=== PATIENT | female | born 1985 | race Caucasian/White ===

== ENCOUNTER → 2024-01-21 06:24 | Day surgery (SDC) | payer OTHER, SELFPAY ==
[2024-01-20 13:13] VITALS: BMI 27.7
[2024-01-20 13:42] LABS: % Basophils 0.5 % (0-2); % Eosinophils 1.9 % (0-6); % Immature Granulocytes 0.2 % (0-0.5); % Lymphocytes 27.1 % (20.5-51.1); % Monocytes 10.2 % (1.7-9.3); % Neutrophils 60.1 % (42.2-75.2); Absolute Eosinophils 0.1 10^3/uL (0-0.7); Absolute Lymphocytes 1.7 10^3/uL (1.2-3.4); Absolute Monocytes 0.7 10^3/uL (0.1-0.6); Absolute Neutrophils 3.8 10^3/uL (1.4-6.5); Hematocrit 39.3 % (37.0-47.0); Mean Corp Hgb Conc. 33.1 g/dL (33.0-37.0); Mean Corpuscular Hgb 30.6 pg (27.0-31.0); Mean Corpuscular Volume 92.5 fL (81.0-99.0); Mean Platelet Volume 9.9 fL (7.4-10.4); Nucleated Red Blood Cells % 0 %; Platelet Count 196 10^3/uL (130-400); Red Blood Cell Count 4.25 10^6/uL (4.20-5.40); Red Cell Dist. Width 12.8 % (11.5-14.5); White Blood Cell Count 6.4 10^3/uL (4.8-10.8)
[2024-01-20 14:12] LABS: PT 13.2 Sec (11.4-14.6)
[2024-01-20 14:13] LABS: APTT 31.1 Sec (23.4-35.0)
[2024-01-21 12:55] VITALS: BMI 27.7
[2024-01-21 12:56] VITALS: BP 115/56
[2024-01-21 15:51] VITALS: BP 103/55
[2024-01-21 16:00] VITALS: BP 116/73
[2024-01-21 16:15] VITALS: BP 138/79
[2024-01-21 16:30] VITALS: BP 131/70
== END ==
LOC: SDS 06:24
PROVIDERS: ATTENDING PHYSICIAN Obstetrics & Gynecology; FAMILY PHYSICIAN Nurse Practitioner Adult Health
DX: R87.613 High grade squamous intraepithelial lesion on cytologic smear of cervix (HGSIL) (principal)
CPT/HCPCS: 57522; 88305; 88307; 36415; 85025; 85610; 85730

== ENCOUNTER → 2024-11-20 09:17 | Outpatient (REF) | payer OTHER, SELFPAY | LOC: WDC 09:17 | PROVIDERS: ATTENDING PHYSICIAN Nurse Practitioner Adult Health | DX: N64.52 Nipple discharge (principal); Z80.3 Family history of malignant neoplasm of breast | CPT/HCPCS: 76642; 77062; 77066 ==

== ENCOUNTER → 2024-12-11 07:55 | Outpatient (REF) | payer OTHER, SELFPAY | LOC: WDC 07:55 | PROVIDERS: ATTENDING PHYSICIAN Internal Medicine | DX: R92.2 Inconclusive mammogram (principal) | CPT/HCPCS: 76641 ==

== ENCOUNTER → 2025-03-31 11:07 | Outpatient (REF) | payer OTHER, SELFPAY | LOC: RCS 11:07 | PROVIDERS: ATTENDING PHYSICIAN Nurse Practitioner Adult Health | DX: F90.9 Attention-deficit hyperactivity disorder, unspecified type (principal); Z79.899 Other long term (current) drug therapy | CPT/HCPCS: 93005 ==

== ENCOUNTER → 2025-05-07 20:15 | Outpatient (REF) | payer OTHER, SELFPAY | LOC: MRI 3T 20:15 | PROVIDERS: ATTENDING PHYSICIAN Surgery; FAMILY PHYSICIAN Nurse Practitioner Adult Health | DX: N64.52 Nipple discharge (principal) | CPT/HCPCS: 77049; A9585 ==

== ENCOUNTER 2025-06-22 06:37 | Day surgery (SDC) | payer OTHER, SELFPAY ==
[2025-06-11 09:16] LABS: Hematocrit 42.4 % (37.0-47.0); Hemoglobin 14.1 g/dL (12.0-16.0); Mean Corp Hgb Conc. 33.3 g/dL (33.0-37.0); Mean Corpuscular Volume 91.8 fL (81.0-99.0); Platelet Count 246 10^3/uL (130-400); Red Cell Dist. Width 13.0 % (11.5-14.5)
[2025-06-11 10:06] LABS: ALT (SGPT) 22 U/L (0-35); AST (SGOT) 22 U/L (14-36); Albumin 4.5 g/dl (3.5-5.0); Alkaline Phosphatase 56 U/L (38-126); Blood Urea Nitrogen 10 mg/dl (7-17); Calcium 9.2 mg/dl (8.4-10.2); Carbon Dioxide 29 mmol/L (22-30); Chloride 102 mmol/L (98-107); Glucose 85 mg/dl (70-99); Potassium 4.0 mmol/L (3.5-5.1); Sodium 136 mmol/L (135-145); Total Protein 6.9 g/dl (6.3-8.2); eGFR > 60.00
[2025-06-11 10:08] LABS: Prealbumin (Transthyretin) 26.2 mg/dl (17.6-36.0)
[2025-06-11 10:28] LABS: Vitamin D, 25-OH*** 24.9 ng/mL (30-80)
[2025-06-11 13:58] VITALS: BMI 21.8
[2025-06-22 13:47] VITALS: BMI 21.8
[2025-06-22 13:51] VITALS: BP 102/66
[2025-06-22] MEDS: TYLENOL 1000 MG PO (14:16)
--- NOTE | 2025-06-22 14:32 | PTCARENOTE ---
Report given to Cari DICKSON.
[2025-06-22 16:16] VITALS: BP 111/77
--- NOTE | 2025-06-22 16:26 | W.IMMPOSTOP ---
Surgical Immed Post Op Note
-
Primary Surgeon: Roxanna
Assisting Surgeon: None
Pre-op Diagnosis: Pathologic discharge left breast
Post-op Diagnosis: Same
Procedure Performed: Exploration left nipple areolar and excision central duct
Anesthesia Type: TIVA
Specimen / Cultures: Central duct comples
Estimated Blood Loss: 6cc
Complications: None
Operative Findings: Duct with bloody discharge identified
--- NOTE | 2025-06-22 16:29 | OR.RPT ---
Operative Report
Operative Report
Operative date: 06/22/2025
Surgeon: Roxanna
Preoperative diagnosis: Pathologic discharge left breast
: Pathologic discharge left breast
Procedure: Exploration left nipple areolar complex and excision central duct
The patient is a 39-year-old female who presented with pathologic discharge of the left breast. All imaging workup was negative and she presents for exploration and excision of the involved duct. The patient presented to the same-day surgical
services unit on the day of the procedure and she verified site and procedure. She was prepped and DVT and antibiotic prophylaxis were provided. She was transferred to the operating room. In the supine position intravenous sedation was delivered.
The left breast was prepped and draped in the usual sterile fashion and all team members performed an appropriate timeout procedure.
All tissues were anesthetized with 1% lidocaine plain and an inferior circumareolar incision was made sharply with the blade. The nipple flap was elevated using the cautery. A dilated duct was encountered from which sanguinous fluid was emanating.
This was widely excised following it down to the chest wall. Surrounding tissue was very fibrous and this was harvested as well. Time out of body was noted and the specimen was oriented for the pathologist and sent for permanent analysis.
Hemostasis was carefully maintained. Marcaine 0.5% plain was instilled into all tissues. A portion of Surgicel was placed in the wound cavity and the wound was closed using simple interrupted 2-0 Polysorb on deep and intermediate tissues. Skin
was closed using simple interrupted 3-0 Polysorb and subcutaneous tissue and the epidermis was closed with a running subcuticular 4 Monocryl. Surgical glue and sterile compressive dressing were applied. All sponge needle and instrument counts were
correct and the patient was transferred to same-day surgical services unit for recovery.
[id number]
[2025-06-22 16:30] VITALS: BP 127/78
[2025-06-22 16:45] VITALS: BP 103/61
== END 2025-06-22 17:04 | disposition home or self-care (01) ==
LOC: SDS 06:37
PROVIDERS: ATTENDING PHYSICIAN Surgery; FAMILY PHYSICIAN Nurse Practitioner Adult Health
DX: N64.52 Nipple discharge (principal); N62 Hypertrophy of breast
CPT/HCPCS: 19110; 80053; 82306; 84134; 85027; 88307